=== PATIENT | female | born 1955 | race Caucasian/White ===

== ENCOUNTER 2018-02-22 13:07 | Inpatient (IN) | payer SELFPAY ==
[2018-02-22] MEDS ORDERED: traMADol HCl 50 MG TAB PO PRN (17:57)
[2018-02-22] MEDS ORDERED: Dextrose 5% in Water 1,000 ML IV PRN (17:58)
[2018-02-22] MEDS ORDERED: Dextrose 50% Abboject 50 ML SYRINGE SLOW IVP PRN (17:58)
[2018-02-22 18:57] VITALS: BMI 18.8
[2018-02-22] MEDS: Acetaminophen 1,000 MG in Premix Bag 1 BAG IVPB SCH ×2 (20:22→23:51)
[2018-02-22] MEDS: Ketorolac Tromethamine 30 MG/ML VIAL IVP SCH ×2 (20:22→23:49)
[2018-02-22] MEDS: Sodium Chloride 0.9% 1,000 ML IV SCH (20:23)
[2018-02-22] MEDS: Senokot S 8.6-50 MG TAB PO SCH (20:24)
[2018-02-22] MEDS: traMADol HCl 50 MG TAB PO SCH ×2 (20:24→23:50)
[2018-02-22] MEDS: Atorvastatin Calcium 20 MG TAB PO SCH (20:25)
[2018-02-22] MEDS: Famotidine 20 MG TAB PO SCH (20:25)
--- NOTE | 2018-02-22 23:19 | RAD ---
RIGHT HIP THREE VIEWS: INDICATIONS: Fall with right hip pain. FINDINGS: There is a displaced right femoral neck fracture. The femoral head and femoral neck component is dis placed slightly inferior and medial to the proximal femoral shaft component. No additional fracture is evident. IMPRESSION: Displaced right femoral neck fracture. POS: [facility]
--- NOTE | 2018-02-22 23:22 | HP ---
DATE OF ADMISSION: 02/22/2018 ATTENDING PHYSICIAN: Dr. Bond. TRAUMA ACTIVATION: Not applicable. HISTORY OF PRESENT ILLNESS: This is a 62-year-old female, who presented to [facility] status post fall. Per patient, she was ambulating outside of her house yesterday evening when she t ripped over a water hose and fell. She denies any loss of consciousness or head trauma. She is not on any blood thinners at home except for aspirin. She was unable to bear weight immediately post-acc ident; however, she waited until this morning to present to [facility]. At that point, s he was evaluated and found to have an isolated right hip fracture. She was transferred to [facility] for definitive care of her hip fracture. Upon my evaluation, the patient has a chief compl aint of right hip pain, rated 7/10. She is currently receiving morphine for that pain. The pain is worsened with movement and improved with pain medications and it is constant. ALLERGIES: None. HOME MEDICATIONS: Include sertraline 100 mg p.o. daily, lisinopril 10 mg p.o. daily, aspirin 81 mg p .o. daily, amlodipine 5 mg p.o. daily. CHRONIC MEDICAL ILLNESSES: History of stroke with residual left-sided deficit, anxiety and depressio n, hypertension. PAST SURGICAL HISTORY: The patient denies any past surgeries. SOCIAL HISTORY: The patient lives at home with her . She is an occasional drinker, 2-3 beers daily. She is a current smoker, half pack per day x30 years. FAMILY HISTORY: Significant for mother who is from leukemia and father from lung c ancer. REVIEW OF SYSTEMS: A 10-point review of systems was obtained and essentially normal except as indica pankaj in the HPI. PHYSICAL EXAMINATION: VITAL SIGNS: Temperature 99.3, pulse 91, respirations 18, O2 sat 96% on room air, blood pressure 121 /62. GENERAL: Well-developed elderly female, in no acute distress, resting in bed. HEAD: Normocephalic, atraumatic. EYES: Pupils are PERRLA. Extraocular movements are intact. NECK: Supple. Trachea is midline. CHEST/PULMONARY: Normal work of breathing, symmetric rise. LUNGS: Clear to auscultation bilaterally. CARDIOVASCULAR: Regular rate and rhythm. GASTROINTESTINAL: Abdomen is soft, nontender, nondistended. MUSCULOSKELETAL: Moves all extremities x4. NEUROLOGIC: No focal deficit is noted. GCS is 15. LABORATORY DATA: Outside laboratory findings reviewed. WBC 11.7, hemoglobin 11.6, hematocrit 32.2, platelet count 240. INR is 1.1. Sodium 131, potassium 4.8, chloride 101, carbon dioxide 20, BUN 19, creatinine 0.84, glucose 123. AST and ALT within normal limits. RADIOGRAPHIC FINDINGS: X-ray of the chest showed no acute cardiopulmonary process, no cardiomegaly. X-ray of the hip demonstrated a right femoral neck fracture. X-ray of the pelvis demonstrated the s neeta. CT of the brain was negative for acute intracranial abnormality. ASSESSMENT: 1. Status post ground level mechanical fall. 2. Right femoral neck fracture. 3. Acute traumatic pain. 4. History of stroke with residual left-sided deficit. 5. History of hypertension. PLAN: Admit to Trauma Services. I have discussed the case with Orthopedic Surgery, who will see and evaluate the patient. They plan on likely operative intervention in the morning. Perioperative omar n management with p.o. and IV analgesics. Gentle IV fluid hydration. Postoperative PT and OT. Deep venous thrombosis and gastritis prophylaxis as appropriate. The patient is currently normotensive, we will hold antihypertensives at this time and evaluate blood pressure. Plan for admission was disc ussed with the patient at bedside and all questions were answered at the time of this dictation. Tra gregory attending has been notified of admission.
--- NOTE | 2018-02-23 02:54 | CON ---
DATE OF CONSULTATION: 02/22/2018 CHIEF COMPLAINT: Right hip pain. HISTORY OF PRESENT ILLNESS: Ms. Vallejo is a 62-year-old female who fell yesterday evening. She trip ped on a water hose outside in her yard. She landed on her right side and hip. She was unable to be ar weight on the leg. Her helped her to bed. She was unable to ambulate the next day and velázquez d worsening pain. At that point, she decided to present to the local emergency department in [place] . She was found to have a femoral neck fracture and was transferred for further care. She arrived a [facility] this afternoon. She has been admitted to the hospital. She curren tly resting comfortably. No complications. She has been stable. Pain is controlled. She normally is fairly healthy at baseline, although she does smoke. She does not use a cane or walker. PAST MEDICAL HISTORY: Anxiety, depression, history of TIA, hypertension. PAST SURGICAL HISTORY: Negative. SOCIAL HISTORY: The patient drinks alcohol and smokes cigarettes daily. She denies drug use. ALLERGIES: No known drug allergies. FAMILY MEDICAL HISTORY: Noncontributory. REVIEW OF SYSTEMS: Positive for right hip pain with motion, otherwise negative 10-point review of sy stems. PHYSICAL EXAMINATION: VITAL SIGNS: Temperature is 98.4, pulse is 95, respiratory rate 18, oxygen saturation 95%, blood pre ssure is 120/64. GENERAL: She is alert and oriented, in no apparent distress. RESPIRATORY: Breathing comfortably. ABDOMEN: Soft, nontender, and nondistended. MUSCULOSKELETAL: The patient's right hip has pain with motion. She has a slightly shortened right l eg. She is able to flex and extend the foot and ankle and has a palpable dorsalis pedis pulse. IMAGES: X-rays of the right hip are currently unavailable. These have been ordered. She had X-rays at an outside hospital, but these were not transferred. LABORATORY STUDIES: Currently pending, also not available from outside hospital. IMPRESSION: Possible right femoral neck fracture by report, x-rays unavailable currently. PLAN: At this point, the patient will have x-rays of the right hip to confirm that she does in fact have a femoral neck fracture. I have discussed treatment options with her. If she does have a displ aced femoral neck fracture, we will proceed with hemiarthroplasty of the hip tomorrow. I have added her for the surgical schedule. We will plan to proceed with this. If she has a nondisplaced fractur e. We will discuss other treatment options including percutaneous screw fixation. She is aware of r isks and benefits of surgery. She is aware that she will need anesthetic, she has a risk of joint in stability, infection, wound complication, nerve or vascular injury and others. She should be n.p.o. at midnight. She will have adequate pain control and DVT prophylaxis. She will have antibiotic prop hylaxis.
[2018-02-23] MEDS: Acetaminophen 1,000 MG in Premix Bag 1 BAG IVPB SCH ×4 (05:17→18:52)
[2018-02-23] MEDS: traMADol HCl 50 MG TAB PO SCH ×3 (05:18→18:51)
[2018-02-23] MEDS: Ketorolac Tromethamine 30 MG/ML VIAL IVP SCH ×3 (05:18→18:40)
[2018-02-23 05:51] LABS: #Eosinphils 0.1 thou/uL (0.0-0.7); #Monocytes 0.9 thou/uL (0.11-0.59); #Neutrophils 7.4 thou/uL (1.40-6.50); %Basophils 0.2 % (0.0-1.0); %Lymphocytes 10.8 % (21.0-51.0); %Monocytes 9.4 % (0.0-10.0); %Neutrophils 78.7 % (42.0-75.0); Hemoglobin 10.5 g/dL (12.0-16.0); Mean Corpuscular Hemoglobin 33.1 pg (27.0-31.0); Mean Corpuscular Volume 94.5 fL (78.0-98.0); Mean Platelet Volume 6.4 fL (7.4-10.4); Platelet Count 203 thou/uL (130-400); RBC Distribution Width 11.8 % (11.5-14.5); Red Blood Cell (RBC) Count 3.16 mill/uL (4.20-5.40); White Blood Cell (WBC) Count 9.4 thou/uL (4.8-10.8)
[2018-02-23 05:57] LABS: INR-International Normal Ratio 1.4; PTT 33.9 SEC (22.9-36.1); Prothrombin Time 17.3 SEC (12.0-14.7)
[2018-02-23 06:14] LABS: Anion Gap 17 mmol/L (10-20); BUN (Urea Nitrogen) 17 mg/dL (9.8-20.1); Calc. Creatinine Clearance 53 mL/min (70-130); Calcium 8.5 mg/dL (7.8-10.44); Carbon Dioxide 15 mmol/L (23-31); Chloride 102 mmol/L (98-107); Estimated GFR-MDRD 59; Glucose 76 mg/dL (80-115); Phosphorus 3.6 mg/dL (2.3-4.7); Sodium 130 mmol/L (136-145)
[2018-02-23] MEDS ORDERED: CEFAZOLIN/Water 2 GM/20 ML SYRINGE SLOW IVP SCH ×2 (07:00→12:00)
[2018-02-23] MEDS: Sodium Chloride 0.9% 1,000 ML IV SCH ×2 (09:00→22:56)
[2018-02-23] MEDS ORDERED: PHENYLEPHRINE-NS 100 MCG/ML 10 ML SYRINGE ONE (10:19)
[2018-02-23] MEDS ORDERED: Lidocaine 1% PF 5 ML VIAL ONE (10:19)
[2018-02-23] MEDS ORDERED: Glycopyrrolate 0.2 MG/ML 5 ML SYRINGE ONE (10:19)
[2018-02-23] MEDS ORDERED: PROPOFOL 200 MG/20 ML VIAL ONE (10:19)
[2018-02-23] MEDS ORDERED: Midazolam HCl 2 mg/2 ml Vial ONE (13:41)
[2018-02-23] MEDS ORDERED: Neomycin-Polymyxin 1 ML AMP ONE (13:41)
[2018-02-23] MEDS ORDERED: Fentanyl 100 MCG/2 ML VIAL ONE ×4 (13:41→15:58)
[2018-02-23] MEDS ORDERED: Ondansetron HCl/PF 4 MG/2 ML Vial IVP PRN (15:05)
[2018-02-23] MEDS ORDERED: Promethazine HCl 25 MG/ML VIAL SLOW IVP PRN (15:05)
[2018-02-23] MEDS ORDERED: Promethazine HCl 25 MG/ML VIAL IM PRN (15:05)
--- NOTE | 2018-02-23 16:23 | RAD ---
RIGHT HIP ONE VIEW: History: Right hip replacement. FINDINGS/IMPRESSION: Total hip prosthesis is in place without evidence of hardware complication on this single lateral vie w. POS: [facility]
--- NOTE | 2018-02-23 16:28 | RAD ---
FRONTAL VIEW PELVIS: 02/23/18 CLINICAL HISTORY: Right hemiarthroplasty, right hip. FINDINGS: There is right hip prosthesis in place without hardware complication. Partially visualized overlying skin santos are seen at the lateral right thigh soft tissues. IMPRESSION: Postoperative right hip without evidence of hardware complication. POS: [facility]
[2018-02-23] MEDS: Polyethylene Glycol 3350 17 GM Packet PO SCH (18:50)
[2018-02-23] MEDS: Famotidine 20 MG TAB PO SCH ×2 (18:50→20:57)
[2018-02-23] MEDS: Senokot S 8.6-50 MG TAB PO SCH ×3 (18:50→22:14)
[2018-02-23] MEDS: Folic Acid 1 MG TAB PO SCH (18:50)
[2018-02-23] MEDS: Atorvastatin Calcium 20 MG TAB PO SCH (20:57)
[2018-02-23] MEDS: CEFAZOLIN/Water 2 GM/20 ML SYRINGE SLOW IVP SCH (21:10)
--- NOTE | 2018-02-23 21:56 | OP ---
DATE OF PROCEDURE: 02/23/2018 OPERATION: Right hip hemiarthroplasty. PREOPERATIVE DIAGNOSIS: Right femoral neck fracture. POSTOPERATIVE DIAGNOSIS: Right femoral neck fracture. COMPLICATIONS: None. ESTIMATED BLOOD LOSS: 150 mL SURGEON: Terrance Cisneros M.D. SEISMOGRAPH HELPER: Jovanna Garnica PA-C IMPLANTS: [employer] Basic press-fit stem size 4, 48 mm bipolar shell with a +8.5 femoral neck and head. INDICATIONS: Ms. Vallejo is a 62-year-old female who fell. She fractured her femoral neck. She was indicated for bipolar hemiarthroplasty to restore function and promote early mobilization. Goal of s urgery is to provide pain relief and prevent complications of prolonged bed rest. Risks have been re viewed in detail. She and her family have elected to proceed with the operation. DESCRIPTION OF PROCEDURE: Ms. Vallejo was identified in the preoperative holding area. Her correct e xtremity was marked. She was carried to the operating room. She was positioned supine. General ane sthesia was induced. A multidisciplinary timeout was performed. The right lower extremity was prepp ed and draped in sterile fashion. We began the procedure with a posterior approach to the hip. We dissected down through the subcutane ous tissues to the fascia which was opened. We then exposed the short external rotators of the hip. These were subperiosteally divided from the proximal femur. We performed a capsulotomy. At this po int, the femoral neck was exposed. A new osteotomy was created with an oscillating saw. We then rem gage the broken femoral head and neck fragments. At this point, we cleared bony fragments from the a cetabulum. We then prepared the femur. We entered the intramedullary canal. We then reamed to a si ze 4 followed by broaching from a 2 to a 4. We trialed off of this. A +8.5 length was appropriate. The hip was stable. We removed our trial components. We thoroughly irrigated with copious lavage. We then impacted our final components and reduced the hip. We then began closure after final irriga tion. A #5 Ethibond was used in the piriformis tendon and capsular fascia tissue. This was brought up through drill holes in the trochanter. We then closed the fascia with #2 Vicryl suture, 2-0 Vicry l suture and santos were used. A sterile dressing was applied. The patient was taken to the [facility] ry room in good condition without complication.
[2018-02-23] MEDS ORDERED: Hydrocortisone Sod Succ/PF 100 mg/2 ml Vial IVP SCH (22:00)
[2018-02-24] MEDS: traMADol HCl 50 MG TAB PO SCH ×5 (00:14→23:55)
[2018-02-24] MEDS: Ketorolac Tromethamine 30 MG/ML VIAL IVP SCH ×5 (01:04→23:55)
[2018-02-24 05:41] LABS: #Lymphocytes 0.6 thou/uL (1.20-3.40); #Monocytes 0.6 thou/uL (0.11-0.59); #Neutrophils 11.5 thou/uL (1.40-6.50); %Basophils 0.1 % (0.0-1.0); %Eosinophils 0.1 % (0.0-10.0); %Monocytes 4.6 % (0.0-10.0); %Neutrophils 90.2 % (42.0-75.0); Hemoglobin 9.9 g/dL (12.0-16.0); Mean Corpuscular HGB CONC 34.7 g/dL (32.0-36.0); Mean Corpuscular Hemoglobin 33.2 pg (27.0-31.0); Mean Corpuscular Volume 95.8 fL (78.0-98.0); Mean Platelet Volume 6.8 fL (7.4-10.4); Platelet Count 214 thou/uL (130-400); RBC Distribution Width 11.9 % (11.5-14.5); Red Blood Cell (RBC) Count 2.98 mill/uL (4.20-5.40); White Blood Cell (WBC) Count 12.7 thou/uL (4.8-10.8)
[2018-02-24] MEDS: CEFAZOLIN/Water 2 GM/20 ML SYRINGE SLOW IVP SCH ×3 (05:41→21:05)
[2018-02-24 05:47] LABS: Anion Gap 17 mmol/L (10-20); BUN (Urea Nitrogen) 20 mg/dL (9.8-20.1); Calc. Creatinine Clearance 49 mL/min (70-130); Calcium 8.7 mg/dL (7.8-10.44); Carbon Dioxide 15 mmol/L (23-31); Chloride 106 mmol/L (98-107); Estimated GFR-MDRD 54; Glucose 81 mg/dL (80-115); Phosphorus 4.1 mg/dL (2.3-4.7); Potassium 4.6 mmol/L (3.5-5.1); Sodium 133 mmol/L (136-145)
[2018-02-24] MEDS ORDERED: Ondansetron ODT 4 MG TAB PO PRN (06:27)
[2018-02-24] MEDS ORDERED: Ondansetron HCl/PF 4 MG/2 ML Vial SLOW IVP PRN (06:28)
[2018-02-24] MEDS ORDERED: Sodium Chloride 0.9% 500 ML IV SCH (07:00)
[2018-02-24] MEDS ORDERED: Hydrocortisone Sod Succ/PF 100 mg/2 ml Vial IVP SCH (07:30)
[2018-02-24] MEDS: Senokot S 8.6-50 MG TAB PO SCH ×2 (09:02→21:01)
[2018-02-24] MEDS: Sodium Chloride 0.9% 1,000 ML IV SCH ×2 (09:02→17:13)
[2018-02-24] MEDS: Folic Acid 1 MG TAB PO SCH (09:02)
[2018-02-24] MEDS: Famotidine 20 MG TAB PO SCH ×2 (09:02→21:01)
[2018-02-24] MEDS: Polyethylene Glycol 3350 17 GM Packet PO SCH (09:02)
[2018-02-24] MEDS: Enoxaparin Sodium 40 MG/0.4 ML SYRINGE SC SCH (09:02)
--- NOTE | 2018-02-24 09:23 | PRG ---
DATE OF SERVICE: 02/23/2018 ATTENDING PHYSICIAN: Dr. Navi Bond. SUBJECTIVE: Ms. Vallejo is a 62-year-old female, who was working in her garden when she tripped over a hose. She was transported to [facility] where a right hip fracture was identified. She was admitted by Trauma Services to the floor. Orthopedic consult was obtained. Dr. Cisneros's , Orthopedics, saw the patient and plans to take her to the OR today for fixation of her hip fracture. She has been stable overnight. Pain has been well controlled. OBJECTIVE: VITAL SIGNS: Temperature 98.4, pulse 80, respirations 15, O2 sat 97% on room air, and blood pressure 106/58. GENERAL: Well-nourished, well-developed female lying in bed in no acute distress. HEENT: Atraumatic, normocephalic. RESPIRATORY: No respiratory distress. Respirations even and unlabored. Chest wall movement symmetrical. HEART: Regular rate and rhythm. ABDOMEN: Soft, nontender, nondistended. EXTREMITIES: Moves all extremities. Cap refill brisk, 2+ pulses in all extremities. NEUROLOGIC: GCS of 15. Awake, alert, oriented x3. No focal deficits. ASSESSMENT: 1. Status post ground level fall. 2. Right femoral neck fracture. 3. Acute traumatic pain. PLAN: 1. Dr. Cisneros to take patient to OR today for fixation of fracture. 2. Physical and occupational therapy with orthopedic restrictions postoperatively. 3. Antibiotics per Orthopedic Service. 4. Chemical DVT prophylaxis when okay with Orthopedic Service. 5. Pepcid for gastritis prophylaxis. The patient was seen and examined with Dr. Bond who agrees with the plan. [facility]
--- NOTE | 2018-02-24 09:50 | PRG ---
ADDENDUM DATE OF SERVICE: 02/23/2018 The confirmation for the original progress note is #[id number]. OBJECTIVE: ABDOMEN: Soft, nontender, nondistended. EXTREMITIES: Moves all extremities. Cap refill brisk, 2+ pulses in all extremities. NEUROLOGIC: GCS of 15. Awake, alert, oriented x3. ASSESSMENT: 1. Status post ground level fall. 2. Right femoral neck fracture. 3. Acute traumatic pain. PLAN: 1. Dr. Cisneros to take patient to OR today for fixation of fracture. 2. Physical and occupational therapy with orthopedic restrictions postoperatively. 3. Antibiotics per Orthopedic Service. 4. Chemical DVT prophylaxis when okay with Orthopedic Service. 5. Pepcid for gastritis prophylaxis. The patient was seen and examined with Dr. Bond who agrees with the plan.
[2018-02-24] MEDS: Hydrocortisone Sod Succ/PF 100 mg/2 ml Vial IVP SCH ×2 (14:55→21:03)
--- NOTE | 2018-02-24 17:00 | PRG ---
DATE OF SERVICE: 02/24/2018 ATTENDING PHYSICIAN: Dr. Navi Bond. SUBJECTIVE: Ms. Vallejo is a 62-year-old female, who was working in her garden where she tripped over a garden hose. She was transported to [facility] where right hip fracture was identified. She was taken to the operating room 1 day ago for fixation of her hip fracture. She und erwent right hip hemiarthroplasty. Postoperatively, she had hypotension. She was given a fluid bolu s and started on hydrocortisone. Blood pressure has responded to this treatment. OBJECTIVE: VITAL SIGNS: Temperature 98.3, pulse 80, respirations 14, O2 sat 96% on room air, blood pressure 111 /53. GENERAL: A well-nourished, well-developed female, lying on bed, in no acute distress. HEENT: Atraumatic, normocephalic. RESPIRATORY: No respiratory distress. Respirations even and unlabored. Chest wall movement symmetr ical. CARDIOVASCULAR: Regular rate and rhythm. ABDOMEN: Soft, nontender, nondistended. EXTREMITIES: Moves all extremities. Cap refill brisk, 2+ pulses all extremities. NEUROLOGIC: GCS 15. Awake, alert, oriented x3. No focal deficits. ASSESSMENT: 1. Status post ground-level fall. 2. Right femoral neck fracture. 3. Acute traumatic pain, well controlled. 4. Adrenal insufficiency, treated with hydrocortisone. PLAN: 1. Continue hydrocortisone q.8 hours and monitor blood pressure. 2. Continue physical and occupational therapy with orthopedic restrictions. 3. Antibiotics per Orthopedic Service. 4. Lovenox for DVT prophylaxis. 5. Pepcid for gastritis prophylaxis. 6. Case management following for discharge planning. Rehab screen has been placed. The patient was seen and examined with Dr. Bond, who agrees with plan.
[2018-02-24] MEDS: Atorvastatin Calcium 20 MG TAB PO SCH (21:01)
[2018-02-25 04:27] LABS: #Lymphocytes 0.7 thou/uL (1.20-3.40); #Monocytes 0.7 thou/uL (0.11-0.59); #Neutrophils 7.8 thou/uL (1.40-6.50); %Eosinophils 0.1 % (0.0-10.0); %Lymphocytes 7.2 % (21.0-51.0); %Monocytes 7.8 % (0.0-10.0); %Neutrophils 84.9 % (42.0-75.0); Hemoglobin 8.3 g/dL (12.0-16.0); Mean Corpuscular Hemoglobin 33.5 pg (27.0-31.0); Mean Corpuscular Volume 95.8 fL (78.0-98.0); Mean Platelet Volume 7.1 fL (7.4-10.4); Platelet Count 182 thou/uL (130-400); RBC Distribution Width 11.9 % (11.5-14.5); Red Blood Cell (RBC) Count 2.48 mill/uL (4.20-5.40); White Blood Cell (WBC) Count 9.2 thou/uL (4.8-10.8)
[2018-02-25 04:58] LABS: Anion Gap 10 mmol/L (10-20); BUN (Urea Nitrogen) 23 mg/dL (9.8-20.1); Calc. Creatinine Clearance 57 mL/min (70-130); Calcium 8.6 mg/dL (7.8-10.44); Carbon Dioxide 20 mmol/L (23-31); Chloride 109 mmol/L (98-107); Estimated GFR-MDRD 64; Glucose 228 mg/dL (80-115); Phosphorus 2.1 mg/dL (2.3-4.7); Potassium 4.4 mmol/L (3.5-5.1); Sodium 135 mmol/L (136-145)
[2018-02-25] MEDS: Ketorolac Tromethamine 30 MG/ML VIAL IVP SCH ×2 (05:28→12:31)
[2018-02-25] MEDS: traMADol HCl 50 MG TAB PO SCH ×3 (05:30→18:06)
[2018-02-25] MEDS: Hydrocortisone Sod Succ/PF 100 mg/2 ml Vial IVP SCH ×3 (05:31→21:34)
[2018-02-25] MEDS: CEFAZOLIN/Water 2 GM/20 ML SYRINGE SLOW IVP SCH ×3 (05:32→21:35)
[2018-02-25] MEDS ORDERED: SODIUM PHOSPHATE IVPB SCH (08:00)
[2018-02-25] MEDS ORDERED: SODIUM CHLORIDE 0.9% IVPB SCH (08:00)
[2018-02-25] MEDS: Ascorbic Acid 500 mg Chewable Tablet PO SCH ×2 (09:21→20:36)
[2018-02-25] MEDS: Senokot S 8.6-50 MG TAB PO SCH ×2 (09:28→20:36)
[2018-02-25] MEDS: Famotidine 20 MG TAB PO SCH ×2 (09:29→20:37)
[2018-02-25] MEDS: Polyethylene Glycol 3350 17 GM Packet PO SCH (09:29)
[2018-02-25] MEDS: Folic Acid 1 MG TAB PO SCH (09:29)
[2018-02-25] MEDS: Enoxaparin Sodium 40 MG/0.4 ML SYRINGE SC SCH (09:29)
[2018-02-25] MEDS ORDERED: Ibuprofen 600 MG TAB PO PRN (13:51)
--- NOTE | 2018-02-25 17:52 | PRG ---
DATE OF SERVICE: 02/25/2018 ATTENDING PHYSICIAN: Dr. Navi Bond. SUBJECTIVE: Ms. Vallejo is a 62-year-old female, who was working in her garden when she tripped over a garden hose. She was transported to [facility] where right hip fracture was i dentified. She is now postoperative day #2, status post ORIF of her right hip fracture. Postoperati vely, she had episodes of hypotension, necessitating fluid bolus and hydrocortisone initiation. She has now been hemodynamically stable. She is mobilizing with physical and occupational therapy. She plans to discharge home with home health care. Pain has been well controlled. OBJECTIVE: VITAL SIGNS: Temperature 98.7, pulse 61, respirations 18, O2 saturation 98% on room air, blood press ure 110/63. GENERAL: Well-nourished, well-developed female, lying on bed, in no acute distress. HEENT: Atraumatic, normocephalic. RESPIRATORY: No respiratory distress. Respirations are even and unlabored. CARDIOVASCULAR: Regular rate and rhythm. Heart sounds normal. ABDOMEN: Soft, nontender, nondistended. EXTREMITIES: Moves all extremities. Cap refill brisk, 2+ pulses in all extremities. NEUROLOGIC: GCS 15. Awake, alert, and oriented x3. No focal deficits. LABORATORY DATA: CBC: WBC 9.2, RBC 2.48, hemoglobin 8.3, hematocrit 23.7, platelets 182. Chemistry : Sodium 135, potassium 4.4, chloride 109, carbon dioxide 20, BUN 23, creatinine 0.89, glucose 228, calcium 8.6, phosphorus 2.1, magnesium 2.0. ASSESSMENT: 1. Status post ground level fall. 2. Right femoral neck fracture, postoperative day #2. 3. Acute traumatic pain, well controlled. 4. Adrenal insufficiency, treated with hydrocortisone. PLAN: 1. Continue to monitor blood pressure and continue hydrocortisone. 2. Continue physical and occupational therapy. 3. Replace electrolytes. Monitor. Replace as indicated. 4. Lovenox for DVT prophylaxis. 5. Pepcid for gastritis prophylaxis. 6. Case management following for discharge planning. Plan on discharging home with home health care per patient. The patient was seen and examined with Dr. Bond, who agrees with plan.
[2018-02-25] MEDS ORDERED: Oxazepam 10 MG CAP PO PRN (18:04)
[2018-02-25] MEDS: Ferrous Sulfate 325 MG TAB PO SCH (18:06)
[2018-02-25] MEDS: Nicotine 14 MG PATCH TD SCH (18:25)
[2018-02-25] MEDS: Atorvastatin Calcium 20 MG TAB PO SCH (20:36)
[2018-02-26] MEDS: traMADol HCl 50 MG TAB PO SCH ×2 (00:22→05:28)
[2018-02-26 05:24] LABS: #Lymphocytes 0.9 thou/uL (1.20-3.40); #Monocytes 0.7 thou/uL (0.11-0.59); #Neutrophils 9.3 thou/uL (1.40-6.50); %Basophils 0.1 % (0.0-1.0); %Eosinophils 0.2 % (0.0-10.0); %Lymphocytes 8.4 % (21.0-51.0); %Monocytes 6.7 % (0.0-10.0); %Neutrophils 84.6 % (42.0-75.0); Hemoglobin 8.3 g/dL (12.0-16.0); Mean Corpuscular HGB CONC 34.9 g/dL (32.0-36.0); Mean Corpuscular Hemoglobin 33.3 pg (27.0-31.0); Mean Corpuscular Volume 95.2 fL (78.0-98.0); Mean Platelet Volume 6.8 fL (7.4-10.4); Platelet Count 222 thou/uL (130-400); RBC Distribution Width 12.1 % (11.5-14.5)
[2018-02-26] MEDS: Hydrocortisone Sod Succ/PF 100 mg/2 ml Vial IVP SCH (05:28)
[2018-02-26 05:30] LABS: Anion Gap 11 mmol/L (10-20); BUN (Urea Nitrogen) 18 mg/dL (9.8-20.1); Calc. Creatinine Clearance 65 mL/min (70-130); Calcium 8.8 mg/dL (7.8-10.44); Carbon Dioxide 21 mmol/L (23-31); Chloride 110 mmol/L (98-107); Estimated GFR-MDRD 75; Glucose 145 mg/dL (80-115); Magnesium 2.2 mg/dL (1.6-2.6); Phosphorus 2.4 mg/dL (2.3-4.7); Potassium 3.9 mmol/L (3.5-5.1); Sodium 138 mmol/L (136-145)
[2018-02-26] MEDS: Enoxaparin Sodium 40 MG/0.4 ML SYRINGE SC SCH (07:55)
[2018-02-26] MEDS: Nicotine 14 MG PATCH TD SCH (07:56)
[2018-02-26] MEDS: Senokot S 8.6-50 MG TAB PO SCH (07:56)
[2018-02-26] MEDS: Folic Acid 1 MG TAB PO SCH (07:57)
[2018-02-26] MEDS: Ascorbic Acid 500 mg Chewable Tablet PO SCH (07:57)
[2018-02-26] MEDS: Famotidine 20 MG TAB PO SCH (07:57)
[2018-02-26] MEDS: Ferrous Sulfate 325 MG TAB PO SCH (07:57)
[2018-02-26] MEDS ORDERED: Bisacodyl 10 MG SUPP PR SCH (09:00)
[2018-02-26] MEDS ORDERED: Non-Formulary Item 1 EACH (Sertraline Hcl [Zoloft] 50 MG) PO SCH (09:00)
[2018-02-26] MEDS: Polyethylene Glycol 3350 17 GM Packet PO SCH (09:41)
[2018-02-26 12:03] VITALS: BP 129/55; TEMP 98.2
[2018-02-26] MEDS ORDERED: Hydrocortisone Sod Succ/PF 100 mg/2 ml Vial IVP SCH (14:00)
== END 2018-02-26 11:50 | disposition home or self-care (01) | DRG 470 ==
LOC: ERS 13:07 → SURG A 16:35
PROVIDERS: ADMIT Surgery; ATTEND Surgery
PROC: 0SRR03A Replacement of Right Hip Joint, Femoral Surface with Ceramic Synthetic Substitute, Uncemented, Open Approach (ICD-10-PCS; principal; 2018-02-23)
DX: S72.001A Fracture of unspecified part of neck of right femur, initial encounter for closed fracture (principal); I69.354 Hemiplegia and hemiparesis following cerebral infarction affecting left non-dominant side; E27.40 Unspecified adrenocortical insufficiency; I10 Essential (primary) hypertension; F41.8 Other specified anxiety disorders; F17.210 Nicotine dependence, cigarettes, uncomplicated; W01.0XXA Fall on same level from slipping, tripping and stumbling without subsequent striking against object, initial encounter; Y92.007 Garden or yard of unspecified non-institutional (private) residence as the place of occurrence of the external cause
CPT/HCPCS: 36415; 72170; 80048; 82533; 83735; 84100; 85025; 85610; 85730; 86850; 86900; 86901; 96374; 96376; G0390; G8978-GP-CL; G8979-GP-CJ; G8987-GO-CK; G8988-GO-CI; J0131; J1650; J1720; J1885; J2001; J2250; J2270; J2405; J2704; J3010; J7050